=== PATIENT | male | born 1990 | race Two or more races ===

== ENCOUNTER 2016-08-21 23:32 | Emergency (ER) | payer SELFPAY ==
[~2016-08-21] VITALS: Ht 165.1 cm; Wt 54.4 kg
[2016-08-21 23:40] VITALS: BP 128/78
[2016-08-22] MEDS ORDERED: TRAM50TA PO (00:02)
[2016-08-22] MEDS ORDERED: AMOX500C PO (00:02)
--- NOTE | 2016-08-22 00:02 | PHYS DOC ---
Past Medical History Past Medical History: No Pertinent History Past Surgical History: No Surgical History Alcohol Use: None Drug Use: None Adult General Chief Complaint Chief Complaint: DENTAL PROBLEM HPI HPI Patient is a 26 year old male presents the emergency department stating that he has having left maxillary sinus pressure and tenderness. He has also stating that he has having left upper back dental pain. Patient denies fever, chills or any nausea vomiting. He states that this pain is been occurring for the last 3 days. Patient does not appear to have any abscesses noted. He does have tenderness noted in the upper gum line. Teeth appear to be intact. Review of Systems Review of Systems Constitutional: Denies fever or chills [] Eyes: Denies change in visual acuity, redness, or eye pain [] HENT: Denies nasal congestion or sore throat. Left maxillary sinus pressure, with left upper back dental pain Respiratory: Denies cough or shortness of breath [] Cardiovascular: No additional information not addressed in HPI [] GI: Denies abdominal pain, nausea, vomiting, bloody stools or diarrhea [] : Denies dysuria or hematuria [] Musculoskeletal: Denies back pain or joint pain [] Integument: Denies rash or skin lesions [] Neurologic: Denies headache, focal weakness or sensory changes [] Physical Exam Physical Exam Constitutional: Well developed, well nourished, no acute distress, non-toxic appearance. [] HENT: Normocephalic, atraumatic, bilateral external ears normal, oropharynx moist, no oral exudates, nose normal. Bilateral tympanic membranes appear to be normal. Patient with left side sinus tenderness noted. Patient with tenderness noted in the upper left back gumline. No dental abscess noted. It appears to be with no erythematous or exudate noted. Teeth appear to be intact. Eyes: PERRLA, EOMI, conjunctiva normal, no discharge. [] Neck: Normal range of motion, no tenderness, supple, no stridor. [] Cardiovascular:Heart rate regular rhythm, no murmur [] Lungs & Thorax: Bilateral breath sounds clear to auscultation [] Skin: Warm, dry, no erythema, no rash. [] Back: No tenderness Extremities: No tenderness, no cyanosis, no clubbing, ROM intact, no edema. [] Neurologic: Alert and oriented X 3, normal motor function, normal sensory function, no focal deficits noted. [] Psychologic: Affect normal, judgement normal, mood normal. [] Current Patient Data Vital Signs Vital Signs Date Time Temp Pulse Resp B/P Pulse Ox O2 Delivery O2 Flow Rate FiO2 08/21/16 23:40 97.4 61 20 100 Room Air 97.4 EKG EKG [] Radiology/Procedures Radiology/Procedures [] Course & Med Decision Making Course & Med Decision Making Pertinent Labs and Imaging studies reviewed. (See chart for details) Patient was recommended to use Sudafed at home to help with the pressure and discomfort. Also recommended Mucinex DM. Patient will be placed on amoxicillin. Recommended him to follow up with a dentist next week. Patient will be discharged home with sinusitis instructions as well as dental pain. Patient agrees with discharge instructions treatment regimens and follow-up recommendations. Since symptoms to return back to emergency department as been provided. She was instructed pain medication will cause drowsiness do not take any be alert and oriented. He'll be provided with tramadol. [] Dragon Disclaimer Dragon Disclaimer This electronic medical record was generated, in whole or in part, using a voice recognition dictation system. Departure Departure Impression: Primary Impression: Sinusitis Additional Impression: Pain, dental Disposition: HOME, SELF-CARE Condition: STABLE Patient Instructions: Dental Pain, [id number], Sinusitis, [id number] Additional Instructions: Activity as tolerated. Ibuprofen 800 mg every 8 hours. Sudafed as instructed by specimen accessioner [id number]. Use next DM as directed by specimen accessioner [id number]. Medication as prescribed. He'll also be provided with some Demerol for severe pain and discomfort. This medication will cause drowsiness do not take any be alert and oriented. Follow-up with the dentist within the next week. Return back to emergency prior signs symptoms of become worse Scripts Amoxicillin 500 Mg Capsule1 Cap PO QID #40 CAP Prov:YURI FERREIRA NP 08/22/16 Tramadol Hcl 50 Mg Tablet1 Tab PO PRN Q6HRS #10 TAB Prov:YURI FERREIRA CREATIVE ENGAGEMENT DIRECTOR 08/22/16 Problem Qualifiers YURI FERREIRA NP Aug 22, 2016 00:02
== END 2016-08-22 00:17 | disposition home or self-care (01) ==
LOC: ER 23:32
DX: J32.9 Chronic sinusitis, unspecified (principal); K08.89 Other specified disorders of teeth and supporting structures
CPT/HCPCS: 99283